=== PATIENT | female | born 1970 | race Caucasian/White ===

== ENCOUNTER 2017-12-09 11:53 | Emergency (ER) | payer OTHER ==
[2017-12-09] MEDS: KETOROLAC 60 MG INJ IM (16:03)
== END 2017-12-09 17:11 | disposition home or self-care (01) ==
LOC: FTE 11:53
DX: M54.9 Dorsalgia, unspecified (principal); I10 Essential (primary) hypertension
CPT/HCPCS: 72100; 81025; 96372; 99284-25